=== PATIENT | male | born 1950 | race Caucasian/White ===

== ENCOUNTER 2022-11-15 11:31 | Emergency (ER) | payer MEDICARE, SELFPAY ==
[2022-11-15 11:32] VITALS: BP 156/112; PULSE 67; RESP 18; TEMP 36.1; O2SAT 100; BMI 28.1
--- NOTE | 2022-11-15 12:40 | EDS_ITS ---
HPI History of Present Illness Chief Complaint: Other, Pain/Inj Informant: patient Narrative Narrative: 72-year-old male presenting to the emergency department with the chief complaint of neck pain. 3 days ago he woke with pain in the posterior neck which seem to bother his left shoulder but then resulted in an decreased ability to range his neck without pain. Currently describing a 10 out of 10 pain in the right shoulder with movement feels like he is being stabbed in the posterior right shoulder. He draws a line from his neck to his right shoulder with his hand as the area that hurts. He tells me that his father and his children have had angiomas but it skipped him but he is worried he has a blood clot in his head and neck. He denies any muscular weakness. He denies any loss of sensation. No fevers. He states at first when this began he thought perhaps he slept awkwardly and that was causing his pain. He states that in the past month his fingernails are all turning black. He states his blood pressure is higher than its ever been. He states that he is very worried about this. [facility] Medical History (Updated 11/15/22 @ 13:[address] Monty Iyer DO) Neck pain Home Medications cyclobenzaprine 10 mg tablet 10 mg PO TID PRN Muscle Spasm #15 TABLETS 11/15/22 [Rx Last Taken Unknown] ibuprofen 600 mg tablet 600 mg PO Q6H PRN PRN pain #20 TABLETS 11/15/22 [Rx Last Taken Unknown] Allergy/AdvReac Type Severity Reaction Status Date / Time No Known Allergies Allergy Verified 11/15/22 11:35 Social History Smoking Status: Unknown if ever smoked ROS ROS ED Constitutional Constitutional ED: Denies chills or weight loss Eyes Eyes: Denies change in vision or diplopia ENT ENT ED: Denies ear pain, rhinorrhea or sore throat Cardiovascular Cardiovascular: Denies chest pain, orthopnea, palpitations or racing heartbeat Respiratory/Chest Respiratory/Chest: Denies cough, dyspnea or orthopnea Gastrointestinal Gastrointestinal: Denies abdominal pain, diarrhea, nausea or vomiting Genitourinary Genitourinary ED: Denies dysuria, hematuria or urinary frequency Musculoskeletal Musculoskeletal: Reports neck pain; Denies arthralgias or myalgias Integumentary Denies abscess or rash Neurologic Neurologic: Denies headache(s), paresthesias or weakness Psychiatric Psychiatric: Denies anxiety, depression, suicidal ideation or suicidal thoughts Endocrine Endocrinology: Denies polydipsia, polyphagia or polyuria Allergic/Immunologic Allergic/Immunologic ED: Denies mouth swelling, tongue swelling or urticaria EXAM Physical Exam Const Vital Signs: 11/15/22 11:32 Temperature 97 F L Temperature Source Temporal Pulse Rate 67 Respiratory Rate 18 Blood Pressure 156/112 H Blood Pressure Mean 126 Pulse Ox 100 Oxygen Delivery Method Room Air Positive well nourished and well developed General Appearance ED: well developed HEENT Reports normocephalic, head/scalp atraumatic and moist mucous membranes Eyes PERRL and EOMs intact bilaterally Neck no lymphadenopathy, supple and no JVD Neck Narrative: Patient with limited range of motion of rotation with the neck particularly to the right. He complains of tenderness to the right of the midline in the trapezius distribution over to the supraspinatus area of the right shoulder. There are no rashes. General: tenderness Resp normal respiratory effort and clear to auscultation bilaterally Cardio regular rate, regular rhythm and no murmurs GI normal to inspection, nondistended, normoactive bowel sounds and non-tender Palpation: soft Back/Spine no CVA tenderness and normal ROM Extremity normal to inspection Extremity Narrative: Upper extremities appear neurologically intact. General Extremety ED: Negative for edema General Extremity: Negative for edema Neuro oriented x3, CN's II-XII intact bilaterally and no sensory deficits noted Sensorium / Orientation: alert Motor Exam: strength 5/5 throughout; Negative for general weakness or strength abnormal Psych mental status grossly normal Mood & Affect: Negative for depressed or tearful Skin no rashes or lesions noted and no wounds MDM MDM MDM Narrative Medical decision making narrative: Difficult to get a complete history as the patient does not have the information that he is wanting to convey and difficult to discuss possible etiologies because he cuts me off with each attempt to discuss a differential with him. Patient starts off the conversation by stating that he needs a CAT scan but it is difficult based on what he is telling me he wants/needs and what type of imaging he would require. Most likely this is musculoskeletal in nature and not underlying hematologic disorder. However after discussing with him I think we can obtain some imaging and basic blood work. We would need basic blood work for injection of contrast amongst other reasons. Patient came out and told nursing that he is declining blood work and imaging and would just like a muscle relaxant and pain medication. I am going to have him sign out AGAINST MEDICAL ADVICE because he is telling me he is in 10 out of 10 pain he tells me that this is very abnormal for him. He tells me that he is very worried about this. He appears to have the capacity to sign out. Discharge Plan Triage Chief Complaint: Other, Pain/Inj ED Provider: Monty Iyer Dx/Rx/DC Orders Clinical Impression: Acute torticollis, Acute neck pain Instructions: Your Neck Muscles Prescriptions: New cyclobenzaprine [cyclobenzaprine] 10 mg tablet 10 mg PO TID PRN (Reason: Muscle Spasm) Qty: 15 0RF ibuprofen 600 mg tablet 600 mg PO Q6H PRN PRN (Reason: pain) Qty: 20 0RF Primary Care Provider: Vikram Lee Referrals: Vikram Lee MD [Primary Care Provider] - As soon as possible Disposition Disposition: Against Medical Advice
== END 2022-11-15 13:58 | disposition left against medical advice (07) ==
PROVIDERS: Emergency Provider Emergency Medicine; PCP Internal Medicine; Visit Provider Emergency Medicine
DX: M43.6 Torticollis (principal); M25.511 Pain in right shoulder; M54.2 Cervicalgia; Z53.29 Procedure and treatment not carried out because of patient's decision for other reasons
CPT/HCPCS: 99282